=== PATIENT | female | born 2000 | race American Indian/Alaskan Native ===

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

== ENCOUNTER 2018-10-17 03:53 | Emergency (ER) | payer MEDICAID, OTHER ==
[2018-10-17 04:02] VITALS: BP 132/92
[2018-10-17] MEDS ORDERED: NACL 0.9% 1000 ML 1,000 ML IV ONE (04:02)
[2018-10-17 04:28] LABS: Basophils % (Auto) 0.5 % (0.0-1.8); Eosinophils # (Auto) 0.1 K/mm3 (0.0-0.4); Eosinophils % (Auto) 1.7 % (0.0-4.3); Hematocrit 41.8 % (30.3-42.9); Hemoglobin 13.8 gm/dl (10.1-14.3); Lymphocytes # (Auto) 3.3 K/mm3 (1.2-5.4); Lymphocytes % (Auto) 38.9 % (13.4-35.0); Mean Corpuscular HGB Conc 33 % (30-34); Mean Corpuscular Volume 81 fl (79-97); Monocytes # (Auto) 0.5 K/mm3 (0.0-0.8); Monocytes % (Auto) 6.1 % (0.0-7.3); Platelet Count 336 K/mm3 (140-440); Red Blood Count 5.15 M/mm3 (3.65-5.03); Red Cell Distribution Width 13.6 % (13.2-15.2)
[2018-10-17 04:53] LABS: Alanine Aminotransferase 10 units/L (7-56); Albumin 3.9 g/dL (3.9-5); BUN/Creatinine Ratio 20; Blood Urea Nitrogen 10 mg/dL (7-17); Calcium 9.2 mg/dL (8.4-10.2); Hemolysis Index 4
[2018-10-17] MEDS ORDERED: TYLENOL PO ONE (04:55)
[2018-10-17] MEDS ORDERED: TYLENOL ONE (04:56)
[2018-10-17 04:59] LABS: Bacteria,Urine 1+ /HPF (Negative); Bilirubin,Urine NEG (Negative); Blood,Urine SM (Negative); Color,Urine Yellow (Yellow); Mucus,Urine 2+ /HPF; Protein,Urine <15 mg/dL mg/dL (Negative); Urobilinogen,Urine < 2.0 mg/dL (<2.0)
[2018-10-17] MEDS ORDERED: ROXICODONE PO ONE (05:18)
[2018-10-17] MEDS ORDERED: IBUPROFEN PO ONE (05:19)
--- NOTE | 2018-10-17 05:30 | Emergency Department Report ---
ED Female HPI - General Chief complaint: Abdominal Pain Stated complaint: LEFT SIDE PAIN Time Seen by Provider: 10/17/18 05:24 Source: patient Mode of arrival: Ambulatory Limitations: No Limitations, Language Barrier - History of Present Illness Initial comments: 18-year-old -[place] female presents to the emergency room for left thigh pain that radiates to left lower quadrant. Patient reports that this started today. Patient denies any dysuria or nausea, no vomiting or urinary frequency or urgency. Patient reports she just has a surgical history of breast reduction 2 years ago. Patient denies any allergies to medication currently t akes no medications on a daily basis MD Complaint: pelvic pain, other (left flank pain) -: days(s) (1) Location: suprapubic, LLQ Radiation: L flank Severity: severe Severity scale (0 -10): 10 Quality: cramping, sharp Consistency: constant Improves with: none Worsens with: none Are you Now?: No Associated Symptoms: denies: vaginal discharge, vaginal bleeding, nausea/vomiting, fever/chills, dysuria - Related Data Previous Rx's Medication Instructions Recorded Last Taken Type Sulfamethoxazole/Trimethoprim 1 each PO BID #20 tablet 09/08/15 Unknown Rx [Bactrim DS TAB] Famotidine [Pepcid] 20 mg PO BID PRN #30 tablet 11/22/16 Unknown Rx Ondansetron [Zofran Odt] 4 mg PO Q8H PRN #12 tab.rapdis 11/22/16 Unknown Rx Acetaminophen/Codeine [Tylenol 1 tab PO Q6H PRN #12 tab 10/17/18 Unknown Rx /Codeine # 3 tab] Cephalexin [Keflex] 500 mg PO BID #20 capsule 10/17/18 Unknown Rx Ibuprofen [Motrin 800 MG tab] 800 mg PO Q8HR PRN #21 tablet 10/17/18 Unknown Rx Allergies Allergy/AdvReac Type Severity Reaction Status Date / Time No Known Allergies Allergy Verified 09/07/15 22:15 ED Review of Systems ROS: Stated complaint: LEFT SIDE PAIN Other details as noted in HPI Comment: All other systems reviewed and negative Gastrointestinal: abdominal pain Musculoskeletal: back pain ED Past Medical Hx - Surgical History Past Surgical History?: No Additional Surgical History: breast reduction - Social History Smoking Status: Never Smoker - Medications Home Medications: Home Medications Medication Instructions Recorded Confirmed Last Taken Type Sulfamethoxazole/Trimethoprim 1 each PO BID #20 tablet 09/08/15 Unknown Rx [Bactrim DS TAB] Famotidine [Pepcid] 20 mg PO BID PRN #30 tablet 11/22/16 Unknown Rx Ondansetron [Zofran Odt] 4 mg PO Q8H PRN #12 tab.rapdis 11/22/16 Unknown Rx Acetaminophen/Codeine [Tylenol 1 tab PO Q6H PRN #12 tab 10/17/18 Unknown Rx /Codeine # 3 tab] Cephalexin [Keflex] 500 mg PO BID #20 capsule 10/17/18 Unknown Rx Ibuprofen [Motrin 800 MG tab] 800 mg PO Q8HR PRN #21 tablet 10/17/18 Unknown Rx ED Physical Exam - General Limitations: No Limitations, Language Barrier General appearance: alert, in no apparent distress, other (nontoxic in appeara nce, restless in appearance) - Head Head exam: Present: atraumatic, normocephalic - Eye Eye exam: Present: EOMI - ENT ENT exam: Present: mucous membranes moist - GI/Abdominal GI/Abdominal exam: Present: soft, tenderness (llq). Absent: distended - Extremities Exam Extremities exam: Present: normal inspection - Back Exam Back exam: Present: CVA tenderness (L) - Neurological Exam Neurological exam: Present: alert, oriented X3 - Psychiatric Psychiatric exam: Present: normal affect, normal mood - Skin Skin exam: Present: warm, dry, intact, normal color. Absent: rash ED Course Vital Signs 10/17/18 03:56 Temperature 98.8 F Pulse Rate 74 Respiratory 18 Rate Blood Pressure 132/92 O2 Sat by Pulse 99 Oximetry ED Medical Decision Making - Lab Data Result diagrams: 10/17/18 04:07 10/17/18 04:07 Laboratory Tests 10/17/18 10/17/18 10/17/18 04:07 04:07 04:07 WBC 8.6 RBC 5.15 H Hgb 13.8 Hct 41.8 MCV 81 MCH 27 L MCHC 33 RDW 13.6 Plt Count 336 Lymph % (Auto) 38.9 H Elliott % (Auto) 6.1 Eos % (Auto) 1.7 Baso % (Auto) 0.5 Lymph # 3.3 Elliott # 0.5 Eos # 0.1 Baso # 0.0 Seg Neutrophils % 52.8 Seg Neutrophils # 4.5 Sodium 140 Potassium 3.7 Chloride 103.0 Carbon Dioxide 27 Anion Gap 14 BUN 10 Creatinine 0.5 L Estimated GFR > 60 BUN/Creatinine Ratio 20 Glucose 84 Calcium 9.2 Total Bilirubin 0.30 AST 11 ALT 10 Alkaline Phosphatase 84 Total Protein 7.0 Albumin 3.9 Albumin/Globulin Ratio 1.3 HCG, Qual Negative Urine Color Urine Turbidity Urine pH Ur Specific [place] Urine Protein Urine Glucose (UA) Urine Ketones Urine Blood Urine Nitrite Urine Bilirubin Urine Urobilinogen Ur Leukocyte Esterase Urine WBC (Auto) Urine RBC (Auto) U Epithel Cells (Auto) Urine Bacteria (Auto) Urine Mucus 10/17/18 04:42 WBC RBC Hgb Hct MCV MCH MCHC RDW Plt Count Lymph % (Auto) Elliott % (Auto) Eos % (Auto) Baso % (Auto) Lymph # Elliott # Eos # Baso # Seg Neutrophils % Seg Neutrophils # Sodium Potassium Chloride Carbon Dioxide Anion Gap BUN Creatinine Estimated GFR BUN/Creatinine Ratio Glucose Calcium Total Bilirubin AST ALT Alkaline Phosphatase Total Protein Albumin Albumin/Globulin Ratio HCG, Qual Urine Color Yellow Urine Turbidity Slightly-cloudy Urine pH 5.0 Ur Specific [place] 1.025 Urine Protein <15 mg/dl Urine Glucose (UA) Neg Urine Ketones Neg Urine Blood Sm Urine Nitrite Neg Urine Bilirubin Neg Urine Urobilinogen < 2.0 Ur Leukocyte Esterase Lg Urine WBC (Auto) 74.0 H Urine RBC (Auto) 7.0 U Epithel Cells (Auto) 15.0 H Urine Bacteria (Auto) 1+ Urine Mucus 2+ - Radiology Data Radiology results: report reviewed Patient: NARESH HALL MR#: [id number] : 2000 Acct:[id number] Age/Sex: 18 / F ADM Date: 10/17/18 Loc: ED Attending Dr: Ordering Physician: BLADE KUO Date of Service: 10/17/18 Procedure(s): CT abdomen pelvis wo con Accession Number(s): [id number] cc: BLADE KUO FINAL REPORT EXAM: CT ABDOMEN PELVIS WO CON HISTORY: left flank pain that radiates to pelvic TECHNIQUE: Routine axial imaging was obtained of the abdomen and pelvis without oral or IV contrast. Sagittal and coronal reconstructions were reviewed. FINDINGS: The lung bases reveal a calcified granuloma in the right lower lobe along with granulomas in the right hilum. Pleural fluid is not seen. The liver and spleen are normal in size and contain calcified granulomas. The gallbladder, biliary tree, pancreas and adrenal glands appear normal. The kidneys show no evidence of stones or hydronephrosis. The bowel loops are normal in caliber and course. The appendix is not enlarged. There is no evidence of free fluid or adenopathy. In the pelvis the uterus and bladder appear normal. The bones and soft tissues are well maintained IMPRESSION: No acute process in the abdomen and pelvis. Calcified granulomas in the right lower lobe, right hilum, liver and spleen. No evidence of renal stones or hydronephrosis. Transcribed By: RB Dictated By: BEN ESTRADA MD Electronically Authenticated By: BEN ESTRADA MD Signed Date/Time: 10/17/18608 DD/ 6 TD/TT: 10/17/18606 - Medical Decision Making Patient has been evaluated by this provider in [facility]. Patient was given Tylenol in triage which she reports has not helped. Therefore patient was given oxycodone 5 mg and ibuprofen. Patient has left flank pain that radiates to the left lower quadrant with small amount of hematuria and urinalysis and elevated WBCs in urine. Therefore this provider has ordered a CT to rule out kidney stones. Critical care attestation.: If time is entered above; I have spent that time in minutes in the direct care of this critically ill patient, excluding procedure time. ED Disposition Clinical Impression: UTI (urinary tract infection) Qualifiers: Urinary tract infection type: acute cystitis Hematuria presence: with hematuria Qualified Code(s): N30.01 - Acute cystitis with hematuria Disposition: TO HOME OR SELFCARE Is pt being admited?: No Does the pt Need Aspirin: No Condition: Stable Instructions: Abdominal Pain (ED) Additional Instructions: Please complete antibiotics as prescribed. Pain medication as needed. Follow up with her primary care provider if her symptoms persist or gets worse. Prescriptions: Acetaminophen/Codeine [Tylenol /Codeine # 3 tab] 1 tab PO Q6H PRN #12 tab PRN Reason: Pain , Severe (7-10) Cephalexin [Keflex] 500 mg PO BID #20 capsule Ibuprofen [Motrin 800 MG tab] 800 mg PO Q8HR PRN #21 tablet PRN Reason: Pain Referrals: [facility] ANN [Primary Care Provider] - 3-5 Days
--- NOTE | 2018-10-17 06:09 | Cat Scan Report ---
FINAL REPORT EXAM: CT ABDOMEN PELVIS WO CON HISTORY: left flank pain that radiates to pelvic TECHNIQUE: Routine axial imaging was obtained of the abdomen and pelvis without oral or IV contrast. Sagittal and coronal reconstructions were reviewed. FINDINGS: The lung bases reveal a calcified granuloma in the right lower lobe along with granulomas in the righ t hilum. Pleural fluid is not seen. The liver and spleen are normal in size and contain calcified granulomas. The gallbladder, biliary tr ee, pancreas and adrenal glands appear normal. The kidneys show no evidence of stones or hydronephros is. The bowel loops are normal in caliber and course. The appendix is not enlarged. There is no evide nce of free fluid or adenopathy. In the pelvis the uterus and bladder appear normal. The bones and so ft tissues are well maintained IMPRESSION: No acute process in the abdomen and pelvis. Calcified granulomas in the right lower lobe, right hilum, liver and spleen. No evidence of renal stones or hydronephrosis.
== END 2018-10-17 06:37 | disposition home or self-care (01) ==
LOC: ED 03:53
DX: N30.01 Acute cystitis with hematuria (principal)
CPT/HCPCS: 36415; 74176; 80053; 81001; 84703; 85025; 87086

== ENCOUNTER 2020-01-10 00:30 | Emergency (ER) | payer SELFPAY ==
[2020-01-10] MEDS ORDERED: ACETAMINOPHEN 500 MG TAB PO ONE (02:49)
[2020-01-10 04:05] LABS: Bacteria,Urine 1+ /HPF (Negative); Bilirubin,Urine NEG (Negative); Blood,Urine NEG (Negative); Color,Urine Yellow (Yellow); Mucus,Urine FEW /HPF; Protein,Urine <15 mg/dL mg/dL (Negative); Urobilinogen,Urine < 2.0 mg/dL (<2.0)
[2020-01-10 04:07] LABS: HCG Qualitative,Urine Negative (Negative)
--- NOTE | 2020-01-10 04:48 | Emergency Department Report ---
ED General Adult HPI - General Chief complaint: Pain General Stated complaint: TIRED,BODY HURTS Source: patient Mode of arrival: Ambulatory Limitations: No Limitations - History of Present Illness Initial comments: Patient is a nulliparous 19-year-old -Monegasque female with no past medical history who presents to the ED with complaint of acute onset persistent diffuse body aches and pains with generalized weakness and fatigue for the last 6 hours. Patient states that she was not able to sleep because of diffuse body aches. Patient denies fever, chills, nausea, vomiting, back pain, dysuria, urinary frequency and urgency, chest pain, shortness of breath, sore throat, cough, nasal and sinus congestion or abdominal pain, heavy lifting and fall. MD Complaint: diffuse body aches and pain -: Sudden, hour(s) (6) Location: back, upper extremity, lower extremity Radiation: non-radiation Severity scale (0 -10): 6 Quality: aching, sharp Consistency: constant Improves with: none Worsens with: none Associated Symptoms: denies other symptoms, loss of appetite, malaise. denies: confusion, chest pain, cough, diaphoresis, fever/chills, headaches, nausea/vomiting, rash, seizure, shortness of breath, syncope, weakness Treatments Prior to Arrival: none - Related Data Previous Rx's Medication Instructions Recorded Last Taken Type Sulfamethoxazole/Trimethoprim 1 each PO BID #20 tablet 09/08/15 Unknown Rx [Bactrim DS TAB] Famotidine [Pepcid] 20 mg PO BID PRN #30 tablet 11/22/16 Unknown Rx Ondansetron [Zofran Odt] 4 mg PO Q8H PRN #12 tab.rapdis 11/22/16 Unknown Rx Acetaminophen/Codeine [Tylenol 1 tab PO Q6H PRN #12 tab 10/17/18 Unknown Rx /Codeine # 3 tab] Cephalexin [Keflex] 500 mg PO BID #20 capsule 10/17/18 Unknown Rx Ibuprofen [Motrin 800 MG tab] 800 mg PO Q8HR PRN #21 tablet 10/17/18 Unknown Rx Cyclobenzaprine [Flexeril] 10 mg PO Q8H PRN #15 tablet 01/10/20 Unknown Rx Ibuprofen [Motrin] 600 mg PO Q8H PRN #20 tablet 01/10/20 Unknown Rx Allergies Allergy/AdvReac Type Severity Reaction Status Date / Time No Known Allergies Allergy Verified 09/07/15 22:15 ED Review of Systems ROS: Stated complaint: TIRED,BODY HURTS Other details as noted in HPI Constitutional: malaise, weakness. denies: chills, fever Eyes: denies: eye pain, eye discharge, vision change ENT: denies: ear pain, throat pain Respiratory: denies: cough, shortness of breath, wheezing Cardiovascular: denies: chest pain, palpitations Endocrine: no symptoms reported Gastrointestinal: denies: abdominal pain, nausea, diarrhea Genitourinary: denies: urgency, dysuria, discharge Musculoskeletal: back pain, arthralgia, myalgia. denies: joint swelling Skin: denies: rash, lesions Neurological: denies: headache, weakness, paresthesias Psychiatric: denies: anxiety, depression Hematological/Lymphatic: denies: easy bleeding, easy bruising ED Past Medical Hx - Past Medical History Previous Medical History?: No - Surgical History Past Surgical History?: Yes Additional Surgical History: breast reduction - Social History Smoking Status: Never Smoker Substance Use Type: None - Medications Home Medications: Home Medications Medication Instructions Recorded Confirmed Last Taken Type Sulfamethoxazole/Trimethoprim 1 each PO BID #20 tablet 09/08/15 Unknown Rx [Bactrim DS TAB] Famotidine [Pepcid] 20 mg PO BID PRN #30 tablet 11/22/16 Unknown Rx Ondansetron [Zofran Odt] 4 mg PO Q8H PRN #12 tab.rapdis 11/22/16 Unknown Rx Acetaminophen/Codeine [Tylenol 1 tab PO Q6H PRN #12 tab 10/17/18 Unknown Rx /Codeine # 3 tab] Cephalexin [Keflex] 500 mg PO BID #20 capsule 10/17/18 Unknown Rx Ibuprofen [Motrin 800 MG tab] 800 mg PO Q8HR PRN #21 tablet 10/17/18 Unknown Rx Cyclobenzaprine [Flexeril] 10 mg PO Q8H PRN #15 tablet 01/10/20 Unknown Rx Ibuprofen [Motrin] 600 mg PO Q8H PRN #20 tablet 01/10/20 Unknown Rx ED Physical Exam - General Limitations: No Limitations General appearance: alert, in no apparent distress - Head Head exam: Present: atraumatic, normocephalic, normal inspection - Eye Eye exam: Present: normal appearance, PERRL, EOMI Pupils: Present: normal accommodation - ENT ENT exam: Present: normal exam, normal orophraynx, mucous membranes moist, TM's normal bilaterally, normal external ear exam - Neck Neck exam: Present: normal inspection, full ROM - Respiratory Respiratory exam: Present: normal lung sounds bilaterally. Absent: respiratory distress, wheezes, rales, rhonchi, chest wall tenderness, accessory muscle use, decreased breath sounds - Cardiovascular Cardiovascular Exam: Present: regular rate, normal rhythm, normal heart sounds. Absent: systolic murmur, diastolic murmur, rubs, gallop - GI/Abdominal GI/Abdominal exam: Present: soft, normal bowel sounds. Absent: tenderness, guarding, hyperactive bowel sounds, hypoactive bowel sounds - Extremities Exam Extremities exam: Present: normal inspection, full ROM, normal capillary refill - Back Exam Back exam: Present: normal inspection, full ROM, tenderness (Mildly diffuse lumbosacral paraspinal musculoskeletal tenderness), muscle spasm, paraspinal tenderness. Absent: CVA tenderness (L) - Neurological Exam Neurological exam: Present: alert, oriented X3, CN II-XII intact, normal gait, reflexes normal - Psychiatric Psychiatric exam: Present: normal affect, normal mood - Skin Skin exam: Present: warm, dry, intact, normal color. Absent: rash ED Course Vital Signs 01/10/20 00:32 Temperature 98.3 F Pulse Rate 89 Respiratory 18 Rate Blood Pressure 121/82 O2 Sat by Pulse 100 Oximetry ED Medical Decision Making - Medical Decision Making This is a nulliparous 19-year-old -[place]onegasque female with no past medical history who presents to the ED with complaint of acute onset persistent diffuse body aches and pains with generalized weakness and fatigue for the last 6 hours. Patient states that she was not able to sleep because of diffuse body aches. In the ED, patient is alert and oriented x3 and is not in distress with normal vital signs. Patient was treated for pain in the ED and urinalysis was unremarkable with no sign of infection. On reevaluation, patient's pain is well controlled with medications. Patient symptoms are likely due to musculoskeletal spasms or muscle strain. Patient will discharge home on pain medications and muscle relaxants and advised to follow-up with her primary care physician in 5 to 7 days for reevaluation or return to the ED immediately if symptoms get worse. - Differential Diagnosis UTI; Muscle spasm; Muscle strain Critical care attestation.: If time is entered above; I have spent that time in minutes in the direct care of this critically ill patient, excluding procedure time. ED Disposition Clinical Impression: Spasm of muscle of lower back, Muscle strain Disposition: TO HOME OR SELFCARE Is pt being admited?: No Does the pt Need Aspirin: No Condition: Stable Instructions: Muscle Strain (ED), Muscle Spasm (ED) Additional Instructions: Take medications as needed for pain, drink plenty of fluids and follow-up with your primary care physician in 5 to 7 days for reevaluation. Return to the ED immediately if symptoms get worse. Prescriptions: Cyclobenzaprine [Flexeril] 10 mg PO Q8H PRN #15 tablet PRN Reason: Muscle Spasm Ibuprofen [Motrin] 600 mg PO Q8H PRN #20 tablet PRN Reason: Pain Referrals: [facility] [Provider Group] - 3-5 Days Time of Disposition: 04:48 Print Language: HEBREW
== END 2020-01-10 05:14 | disposition home or self-care (01) ==
LOC: ED 00:30
DX: S39.012A Strain of muscle, fascia and tendon of lower back, initial encounter (principal); M62.830 Muscle spasm of back; X58.XXXA Exposure to other specified factors, initial encounter; Y93.89 Activity, other specified; Y92.89 Other specified places as the place of occurrence of the external cause; Y99.8 Other external cause status
CPT/HCPCS: 81001; 81025